=== PATIENT | male | born 1985 | race Caucasian/White ===

== ENCOUNTER 2017-07-20 17:23 | Emergency (ER) | payer OTHER, BC ==
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
--- NOTE | 2017-07-20 19:41 | CT ---
CT cervical spine Technique: Multiple axial sections were obtained from above C1 inferiorly through the T1 vertebral level. Reconstructed sagittal and coronal images were reviewed. Comparison: Previous cervical spine exam of 08/04/13. Findings: Vertebral body heights and disc spaces are fairly well-preserved. Posterior skull base is intact. Vertebral bodies and posterior arches show no fracture. Neural foramina are felt to be fairly well patent. No central canal stenosis is seen. Uncovertebral joints appear within normal limits. Mild scoliosis is noted. Posterior soft tissue calcification is seen at the C6 level which is stable and felt to be incidental. Impression: 1. Mild scoliosis. Incidental soft tissue calcification posteriorly. 2. Nothing acute is appreciated on CT study of the cervical spine. Diagnostic code #2
--- NOTE | 2017-07-21 07:42 | CR ---
Chest: Portable view of the chest was obtained. Comparison: No prior study. Heart size and mediastinum are normal. Lungs are clear. Bony structures are grossly intact. Impression: 1. Nothing acute is identified on portable chest x-ray. Diagnostic code #1
== END 2017-07-20 19:55 | disposition home or self-care (01) ==
LOC: JD.ED 17:23
DX: S13.4XXA Sprain of ligaments of cervical spine, initial encounter (principal); Z88.1 Allergy status to other antibiotic agents; V89.2XXA Person injured in unspecified motor-vehicle accident, traffic, initial encounter; Y92.410 Unspecified street and highway as the place of occurrence of the external cause
CPT/HCPCS: 71010; 71010-26; 72125; 72125-26; 99284; 99284-25